=== PATIENT | female | born 1990 | race Caucasian/White ===

== ENCOUNTER 2016-07-28 20:07 | Emergency (ER) | payer OTHER ==
[~2016-07-28] VITALS: Ht 162.6 cm; Wt 59.0 kg
[2016-07-28 20:09] VITALS: TEMP 36.9; Ht 162.6 cm; Wt 59.0 kg
[2016-07-28] MEDS ORDERED: SERT25TA PO (20:16)
[2016-07-28] MEDS ORDERED: ONDANSETRON INJ 2 MG/ML 2 ML VIAL IV STA (20:34)
[2016-07-28] MEDS ORDERED: LORAZEPAM 2 MG/ML 1 ML VIAL IV STA (20:34)
[2016-07-28] MEDS ORDERED: SODIUM CHLORIDE 0.9% 1000ML 1,000 ML IV STA (20:34)
--- NOTE | 2016-07-28 20:51 | EMERGENCY ROOM VISIT NOTE ---
History Report prepared by Isabel: Nan Lawrence Under the Supervision of: Dr. Jimenez Morales D.O. 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 The patient states that she has been experiencing diarrhea, vomiting, and abdominal pain over the past few days. The patient states that while talking to family today she started to feel more emotional and then experience numbness and tingling in her legs hands and mouth. She states she then she started fearing continuous paralysis which worsened her panicking. The patient states that she had similar symptoms a year and a half ago where she was seen at the ED. The patient states has felt generalized weakness recently, and that her legs feel very tense. She denies any suicidal or homicidal ideation but states that she occasionally has negative thoughts. 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 occasional negative thoughts, legs feel very tense. Patient denies homicidal or suicidal ideation. Review of Systems See HPI for pertinent positives & negatives. A total of 10 systems reviewed and were otherwise negative. Past Medical & Surgical Medical Problems: (1) Delivery normal (2) History of UTI (3) Ruptured ovarian cyst Family History Cancer Diabetes mellitus Hypertension Kidney disease Kidney stones Social History Smoking Status: Never Smoker Smokeless Tobacco Use: No Alcohol Use: none Marital Status: Housing Status: lives with family Current/Historical Medications Scheduled Cephalexin Monohydrate (Keflex), 500 MG PO QID Ondasetron Odt (Zofran Odt), 4 MG SL Q6H Sertraline (Zoloft), 25 MG PO DAILY Allergies Coded Allergies: No Known Allergies (Unverified , 07/28/16) Physical Exam Vital Signs Date Time Temp Pulse Resp B/P Pulse Ox O2 Delivery O2 Flow Rate FiO2 07/28/16 22:56 72 18 100/64 99 07/28/16 22:07 79 18 93/59 98 Room Air 07/28/16 20:09 36.9 87 18 101/80 100 Room Air Physical Exam GENERAL: Patient is awake, alert, somewhat anxious appearing but overall comfortable and does not appear in pain. EYES: The conjunctivae are clear. The pupils are round and reactive. EARS, NOSE, MOUTH AND THROAT: The nose is without any evidence of any deformity. Mucous membranes are moist tongue is midline NECK: The neck is nontender and supple. RESPIRATORY: Normal respiratory effort is noted there is no evidence of wheezing rhonchi or rales CARDIOVASCULAR: Tachycardic rate and regular rhythm noted, no definite murmur to auscultation. GASTROINTESTINAL: The abdomen is non distended and soft. No specific guarding or rigidity was noted. MUSCULOSKELETAL/EXTREMITIES: There is no evidence of gross deformity full range of motion is noted in the hips and shoulders SKIN: There is no obvious evidence of any rash. There are no petechiae, pallor or cyanosis noted. NEUROLOGIC: Patient is awake alert and oriented x3 strength is symmetric patellar reflexes are 2+ bilaterally Medical Decision & Procedures ER Provider Diagnostic Interpretation: X-ray results as stated below per interpretation by me and the radiologist. CHEST ONE VIEW PORTABLE CLINICAL HISTORY: Chest and abdominal pain. Flulike symptoms. COMPARISON STUDY: No previous studies for comparison. FINDINGS: The cardiac and mediastinal contours are normal. There is no evidence of focal pulmonary consolidation. There is no evidence of failure. No pleural effusions are visualized.[ No free intraperitoneal air is visualized IMPRESSION: No active disease in the chest. Electronically signed by: Seth Bhatia M.D. 07/28/2016 9:15 PM Dictated Date/Time: 07/28/2016 9:14 PM KUB CLINICAL HISTORY: Generalized abdominal pain COMPARISON STUDY: 06/30/2013 FINDINGS: There is no evidence of pathologic bowel dilatation. There are no abnormal abdominal calcifications. There is no conventional radiographic evidence of organomegaly. IMPRESSION: Unremarkable supine abdomen Electronically signed by: Seth Bhatia M.D. 07/28/2016 9:16 PM Dictated Date/Time: 07/28/2016 9:15 PM Laboratory Results 07/28/16 20:50 Red Blood Count 4.60, Mean Corpuscular Volume 84.1, Mean Corpuscular Hemoglobin 29.1, Mean Corpuscular Hemoglobin Concent 34.6, Mean Platelet Volume 10.4, Neutrophils (%) (Auto) 93.0, Lymphocytes (%) (Auto) 4.6, Monocytes (%) (Auto) 1.9, Eosinophils (%) (Auto) 0.2, Basophils (%) (Auto) 0.1, Neutrophils # (Auto) 11.03, Lymphocytes # (Auto) 0.54, Monocytes # (Auto) 0.22, Eosinophils # (Auto) 0.02, Basophils # (Auto) 0.01 07/28/16 20:50 Test 07/28/16 20:48 07/28/16 20:50 Urine Color YELLOW Urine Appearance CLEAR (CLEAR) Urine pH 7.0 (4.5-7.5) Urine Specific [place] 1.019 (1.000-1.030) Urine Protein NEG (NEG) Urine Glucose (UA) NEG (NEG) Urine Ketones 3+ (NEG) Urine Occult Blood NEG (NEG) Urine Nitrite NEG (NEG) Urine Bilirubin NEG (NEG) Urine Urobilinogen NEG (NEG) Urine Leukocyte Esterase MODERATE (NEG) Urine WBC (Auto) 10-30 /hpf (0-5) Urine RBC (Auto) 0-4 /hpf (0-4) Urine Hyaline Casts (Auto) 5-10 /lpf (0-5) Urine Epithelial Cells (Auto) >30 /lpf (0-5) Urine Bacteria (Auto) 1+ (NEG) Urine Mucus PRESENT (NONE PRSENT) White Blood Count 11.84 K/uL (4.8-10.8) Red Blood Count 4.60 M/uL (4.2-5.4) Hemoglobin 13.4 g/dL (12.0-16.0) Hematocrit 38.7 % (37-47) Mean Corpuscular Volume 84.1 fL (80-100) Mean Corpuscular Hemoglobin 29.1 pg (25-34) Mean Corpuscular Hemoglobin Concent 34.6 g/dl (32-36) Platelet Count 234 K/uL (130-400) Mean Platelet Volume 10.4 fL (7.4-10.4) Neutrophils (%) (Auto) 93.0 % Lymphocytes (%) (Auto) 4.6 % Monocytes (%) (Auto) 1.9 % Eosinophils (%) (Auto) 0.2 % Basophils (%) (Auto) 0.1 % Neutrophils # (Auto) 11.03 K/uL (1.4-6.5) Lymphocytes # (Auto) 0.54 K/uL (1.2-3.4) Monocytes # (Auto) 0.22 K/uL (0.11-0.59) Eosinophils # (Auto) 0.02 K/uL (0-0.5) Basophils # (Auto) 0.01 K/uL (0-0.2) RDW Standard Deviation 41.3 fL (36.4-46.3) RDW Coefficient of Variation 13.6 % (11.5-14.5) Immature Granulocyte % (Auto) 0.2 % Immature Granulocyte # (Auto) 0.02 K/uL (0.00-0.02) Anion Gap 13.0 mmol/L (3-11) Est Creatinine Clear Calc Drug Dose 88.0 ml/min Estimated GFR () 112.0 Estimated GFR (Non- 96.6 BUN/Creatinine Ratio 26.9 (10-20) Calcium Level 8.9 mg/dl (8.5-10.1) Magnesium Level 1.8 mg/dl (1.8-2.4) Total Bilirubin 1.1 mg/dl (0.2-1) Direct Bilirubin 0.2 mg/dl (0-0.2) Aspartate Amino Transf (AST/SGOT) 16 U/L (15-37) Alanine Aminotransferase (ALT/SGPT) 23 U/L (12-78) Alkaline Phosphatase 46 U/L (45-117) Total Protein 7.7 gm/dl (6.4-8.2) Albumin 4.1 gm/dl (3.4-5.0) Lipase 194 U/L (73-393) Thyroid Stimulating Hormone (TSH) 0.455 uIu/ml (0.300-4.500) Free Thyroxine 1.18 ng/dl (0.80-1.60) Human Chorionic Gonadotropin, Qual NEG (NEG) Medications Administered Medications (Trade) Dose Ordered Sig/Shoshana Route Start Time Stop Time Status Last Admin Dose Admin Lorazepam (Ativan Inj) 0.5 mg NOW STAT IV 07/28/16 20:34 07/28/16 20:36 DC 07/28/16 20:51 0.5 MG Ondansetron HCl 4 mg 4 mg NOW STAT IV 07/28/16 20:34 07/28/16 20:36 DC 07/28/16 20:51 4 MG Sodium Chloride (Nss 1000ml) 1,000 ml @ 999 mls/hr Q1H1M STAT IV 07/28/16 20:34 07/28/16 21:34 DC 07/28/16 20:51 999 MLS/HR Ceftriaxone Sodium (Rocephin Inj) 1 gm NOW STAT IV 07/28/16 21:34 07/28/16 21:35 DC 07/28/16 22:06 1 GM Ondansetron HCl (ZOFRAN ODT 4MG Home Pack) 1 homepack UD ONCE PO 07/28/16 22:15 07/28/16 22:16 DC 07/28/16 22:51 1 HOMEPACK Lorazepam (Ativan 1MG Home Pack) 1 homepack UD ONCE PO 07/28/16 22:15 07/28/16 22:16 DC 07/28/16 22:51 1 HOMEPACK ED Course 2033: The patient was evaluated in room C2B. A complete history and physical examination were performed. 2033: Ordered NSS 1,000 ml @ 999 mls/hr IV, Zofran Inj 4 mg IV, Ativan Inj 0.5 mg IV, Rocephin Inj 1 gm IV. 2134: I reevaluated the patient and discussed medications with her. 2214: Ordered Lorazepam 1 homepack PO, Ondansetron HCl 1 homepack PO. 2239: Upon reevaluation, the patient is hemodynamically stable. I discussed the results and treatment plan with her. She verbalized agreement of the treatment plan. The patient was discharged home. Medical Decision Differential diagnosis: Etiologies such as gastroenteritis, food borne illness, infections, appendicitis , diverticulitis, inflammatory bowel disease, obstruction, GI bleed, biliary pathology, as well as others were entertained. Nursing notes reviewed. Additional history is obtained from the patient's significant other. The patient is a 26-year-old female who presented to the emergency apartment for an evaluation of nausea and vomiting. The patient started to become very anxious after she had nausea and vomiting. She describes hyperventilation and carpopedal spasm. The patient was treated with IV fluids and IV antiemetics in the emergency department. She was also given Ativan and IV antibiotic for presumed urinary tract infection. I discussed the patient's laboratory and radiographic studies with her. Her physical exam did not appear to be consistent with an acute surgical abdomen. She was reevaluated multiple times. She was encouraged to rest and avoid any strenuous activity. She was encouraged to continue all medications as prescribed and drink plenty clear liquids. Otherwise she was encouraged to follow-up with her family doctor this week for reevaluation but return to the emergency department immediately if symptoms change worsen or if the need arises. Impression Primary Impression: Anxiety Additional Impressions: Nausea and vomiting Dehydration UTI (urinary tract infection) Scribe Attestation The scribe's documentation has been prepared under my direction and personally reviewed by me in its entirety. I confirm that the note above accurately reflects all work, treatment, procedures, and medical decision making performed by me. Departure Information Dispostion Home / Self-Care (ERASED) Prescriptions Cephalexin Monohydrate (KEFLEX) 500 Mg Cap 500 MG PO QID, #28 CAP Prov: Jimenez Morales, DO 07/28/16 Ondasetron Odt (ZOFRAN ODT) 4 Mg Tab 4 MG SL Q6H for Nausea, #15 TAB Prov: Jimenez Morales, DO 07/28/16 Referrals Klaudia Boyd M.D. (PCP) Forms HOME CARE DOCUMENTATION FORM, IMPORTANT VISIT INFORMATION Patient Instructions My [facility] Additional Instructions Call your primary care physician in the morning to schedule a follow-up appointment. Drink plenty of clear liquids. Continue all medications as prescribed. Continue using Motrin and Tylenol as directed for pain and fever. Problem Qualifiers
[2016-07-28 21:03] LABS: BASO % 0.1 %; BASO ABS # 0.01 K/uL (0-0.2); COMPLETE YES; EOS % 0.2 %; HEMATOCRIT 38.7 % (37-47); IG% 0.2 %; LYMPH % 4.6 %; LYMPH ABS # 0.54 K/uL (1.2-3.4); MEAN CELL VOLUME 84.1 fL (80-100); MEAN CORPUSCULAR HEMOGLOBIN 29.1 pg (25-34); MEAN CORPUSCULAR HGB CONC 34.6 g/dl (32-36); MEAN PLATELET VOLUME 10.4 fL (7.4-10.4); MONO % 1.9 %; PLATELET COUNT 234 K/uL (130-400); WHITE BLOOD COUNT 11.84 K/uL (4.8-10.8)
[2016-07-28 21:13] LABS: URINE APPEARANCE CLEAR (CLEAR); URINE BILIRUBIN NEG (NEG); URINE COLOR YELLOW; URINE EPITHELIAL CELL AUTO >30 /lpf (0-5); URINE NITRITE NEG (NEG); URINE SPECIFIC GRAVITY 1.019 (1.000-1.030); UROBILINOGEN NEG (NEG)
--- NOTE | 2016-07-28 21:16 | DIAGNOSTIC IMAGING REPORT ---
CHEST ONE VIEW PORTABLE CLINICAL HISTORY: Chest and abdominal pain. Flulike symptoms. COMPARISON STUDY: No previous studies for comparison. FINDINGS: The cardiac and mediastinal contours are normal. There is no evidence of focal pulmonary consolidation. There is no evidence of failure. No pleural effusions are visualized.[ No free intraperitoneal air is visualized IMPRESSION: No active disease in the chest. Electronically signed by: eSth Bhtaia M.D. 07/28/2016 9:15 PM Dictated Date/Time: 07/28/2016 9:14 PM
[2016-07-28 21:17] LABS: MANUAL MICROSCOPIC REQUIRED? NO; REVIEW REQ? YES
--- NOTE | 2016-07-28 21:17 | DIAGNOSTIC IMAGING REPORT ---
KUB CLINICAL HISTORY: Generalized abdominal pain COMPARISON STUDY: 06/30/2013 FINDINGS: There is no evidence of pathologic bowel dilatation. There are no abnormal abdominal calcifications. There is no conventional radiographic evidence of organomegaly. IMPRESSION: Unremarkable supine abdomen Electronically signed by: Seth Bhatia M.D. 07/28/2016 9:16 PM Dictated Date/Time: 07/28/2016 9:15 PM
[2016-07-28 21:19] LABS: BUN/CREATININE RATIO 26.9 (10-20); CALCIUM 8.9 mg/dl (8.5-10.1); CREATININE 0.83 mg/dl (0.60-1.20); MAGNESIUM 1.8 mg/dl (1.8-2.4); POTASSIUM 3.6 mmol/L (3.5-5.1)
[2016-07-28 21:26] LABS: URINE MUCUS PRESENT (NONE PRSENT)
[2016-07-28 21:28] LABS: THYROID STIMULATING HORMONE 0.455 uIu/ml (0.300-4.500)
[2016-07-28] MEDS ORDERED: CEFTRIAXONE SOD INJ 1 GM ADDVIAL IV STA (21:34)
[2016-07-28 21:44] LABS: PREG INTERNAL NEGATIVE QC NEG CLEAR BACKGROUND; PREG INTERNAL POSITIVE QC POS CONTROL LINE
[2016-07-28] MEDS ORDERED: CEPH500C2 PO (22:15)
[2016-07-28] MEDS ORDERED: ONDANSETRON HOME PACK 4MG OD TAB PO ONE (22:15)
[2016-07-28] MEDS ORDERED: ATIVAN 1MG HOMEPACK PO ONE (22:15)
[2016-07-28] MEDS ORDERED: ONDA4TAB10 SL (22:15)
[2016-07-28 22:56] VITALS: BP 100/64; PULSE 72; O2SAT 99
== END 2016-07-28 22:56 | disposition home or self-care (01) ==
LOC: EDBD 20:07 → C.EDC 20:08
DX: F41.9 Anxiety disorder, unspecified (principal); R11.2 Nausea with vomiting, unspecified; E86.0 Dehydration; N39.0 Urinary tract infection, site not specified; Z80.9 Family history of malignant neoplasm, unspecified; Z83.3 Family history of diabetes mellitus; Z84.1 Family history of disorders of kidney and ureter; Z82.49 Family history of ischemic heart disease and other diseases of the circulatory system

== ENCOUNTER → 2016-10-24 | Outpatient (CLI) | payer OTHER ==
[~2016-10-24] MED LIST: CEPH500C2 PO; ONDA4TAB10 SL; SERT25TA PO
--- NOTE | 2016-10-24 08:56 | DIAGNOSTIC IMAGING REPORT ---
SMALL BOWEL FOLLOW-THROUGH CLINICAL HISTORY: Right upper quadrant abdominal pain and nausea. COMPARISON STUDY: CT of the abdomen and pelvis January 06, 2011 and KUB July 28, 2016. FLUOROSCOPY TIME: 0.4 minutes. FINDINGS: A chemical checker KUB demonstrates a normal bowel gas pattern. There is a [id number] amount of stool within the colon. 11 fluoroscopic images were obtained. Jejunal and ileal fold patterns were normal. No small bowel mass was identified. Terminal ileum was normal. Transit time to the cecum was normal at 70 minutes. There was no evidence for a small bowel obstruction. IMPRESSION: Normal small bowel follow-through. Electronically signed by: Tree Kwong M.D. 10/24/2016 8:54 AM Dictated Date/Time: 10/24/2016 8:52 AM
== END | disposition home or self-care (01) ==
LOC: C.RAD 07:05
PROVIDERS: ATTEND Nurse Practitioner Family
DX: R10.11 Right upper quadrant pain (principal)